=== PATIENT | female | born 1975 | race Caucasian/White ===

== ENCOUNTER 2016-08-08 09:32 | Emergency (ER) | payer MEDICAID, MEDICARE ==
[~2016-08-08] VITALS: Ht 152.4 cm; Wt 70.0 kg
[~2016-08-08 09:32] MED LIST: DOCU-30 PO; IBUP800T PO; OXYC-302 PO; PREN1TAB14 PO
[2016-08-08] MEDS ORDERED: ONDANSETRON 2MG/ML, 2ML IVPush ONE ×2 (10:00→11:00)
[2016-08-08] MEDS ORDERED: FAMOTIDINE 20 MG/2 ML IVP ONE (10:00)
[2016-08-08] MEDS ORDERED: SODIUM CHLORIDE 0.9% 1,000ML IVBOLUS ONE (10:00)
[2016-08-08] MEDS ORDERED: SODIUM CHLORIDE FLUSH 10ML SYR IVF ONE (10:00)
[2016-08-08] MEDS ORDERED: ONDANSETRON 2MG/ML, 2ML ONE ×2 (10:07→11:04)
[2016-08-08] MEDS ORDERED: FAMOTIDINE 20 MG/2 ML ONE (10:08)
[2016-08-08 10:17] LABS: HEMOGLOBIN 12.4 g/dL (11.7-16.4)
[2016-08-08 10:22] LABS: ASPARTATE AMINO TRANSFERASE 19 U/L (15-37); BLOOD UREA NITROGEN 9 mg/dL (7-18)
[2016-08-08] MEDS ORDERED: KETOROLAC 30 MG/1 ML IVPush ONE (11:00)
[2016-08-08] MEDS ORDERED: TAMSULOSIN 0.4 MG CAP.ER.24H PO ONE (11:00)
[2016-08-08] MEDS ORDERED: morphine SULFATE 10 MG/ML, 1ML IVPush ONE (11:00)
[2016-08-08] MEDS ORDERED: MORPHINE SULFATE 4 MG/ML, 1ML ONE (11:04)
[2016-08-08] MEDS ORDERED: TAMSULOSIN 0.4 MG CAP.ER.24H ONE (11:04)
[2016-08-08] MEDS ORDERED: KETOROLAC 30 MG/1 ML ONE (11:04)
[2016-08-08 12:59] VITALS: BP 125/68
== END 2016-08-08 13:02 | disposition home or self-care (01) ==
LOC: ED 11:23
DX: E86.0 Dehydration (principal); R11.2 Nausea with vomiting, unspecified; R10.84 Generalized abdominal pain; J45.909 Unspecified asthma, uncomplicated
CPT/HCPCS: 36415; 74020; 80053; 81001; 83690; 85025; 87086; 96361; 96374; 96375; 96376; 99285; J1885; J2270; J2405; J7030; S0028